=== PATIENT | female | born 1990 | race Caucasian/White ===

== ENCOUNTER 2023-04-22 09:10 | Outpatient (AMB) | payer OTHER, SELFPAY ==
--- NOTE | 2023-04-22 09:55 | MHC.OFFWIV ---
Intake Vital Signs 04/22/23 10:02 BP 106/72 Blood Pressure Location Lt brachial Position Sitting Pulse 82 Pulse Source Pulse Oximeter Temp 97.4 F Temp Source Temporal Artery Scan Pulse Oximetry (%) 99 Oxygen Delivery Method Room Air Intake Visit Reasons: EST/strep throat,fever/[phone] Intake Note: Patient here for sore throat, fever, difficulty swallowing for about a day or so. Patient Tobacco Use Status: Never used Tobacco Allergies codeine Adverse Reaction (Mild, Verified 04/22/23 09:56) Vomiting Do you need a note to return to daycare/school/sports/work: No HPI HPI Comments History of Present Illness Details 1017 33-year-old female presents with sore throat, fatigue, malaise, fevers, chills on going for the past 3 days worsening, patient reports her throat is worse with eating, swallowing and really bothering her. Patient denies any sick contacts. Denies changes in voice, trouble opening mouth, trouble controlling secretions, chest pain, shortness of breath, nausea, vomiting, abdominal pain, headache, vision changes, dizziness, weakness. Physical exam significant for Pharynx w/ b/l tonsils w/ errythema and mild edema no exudate or visible abscess noted. Speaking in full sentences, no trismus, contorlling secretions well..??External ears normal, TMs normal bilaterally and EAC's normal. No pain with manipulation of external ears bilaterally. No mastoid tenderness. high suspicion for strep pharyngitis. Other differentials include viral pharyngitis. No signs of peritonsillar abscess, retropharyngeal abscess, epiglottitis, threatened airway. Plan high suspicion for strep therefore will treat with amoxicillin based antibiotic. Educated patient on diagnosis and treatment plan, answered all question, patient verbalizes understanding. At this time patient will be discharged home, advised to return with new or worsening symptoms. Educated on worrisome signs and symptoms and when to return. At this time I feel comfortable discharge home. [facility] Social History Patient Tobacco Use Status: Never used Tobacco Review of Systems Const Details: Constitutional : No Weight loss, + Fever, + Chills, + Fatigue, + Malaise ENT/Mouth : + sore throat, No Rhinorrhea Eyes: No Eye Pain, No Swelling, No Redness Cardiovascular : No Chest Pain, No SOB, No Dyspnea on Exertion, No Orthopnea, No Edema, No Palpitations Respiratory : No Cough, No Sputum, No Wheezing Gastrointestinal : No Nausea, No Vomiting, No Diarrhea, No Constipation, No abdominal Pain, No Hematochezia, No Melena Genitourinary : No Dysuria, No Urinary Frequency, No Hematuria, Musculoskeletal : No joint pain, No Myalgias, No Joint Swelling Skin : No Skin Lesions, No rash Neuro : No Weakness, No Numbness, No Dizziness, No Headache Psych : No Anxiety/Panic, No Depression All other systems reviewed and are negative All systems reviewed & are unremarkable except as noted in HPI and below Physical Exam Vital Signs: Last Vital Signs Temp 97.4 F 04/22/23 10:02 Pulse 82 04/22/23 10:02 BP 106/72 04/22/23 10:02 Pulse Ox 99 04/22/23 10:02 Oxygen Delivery Method Room Air 04/22/23 10:02 vss Appearance: Alert.? Oriented X3.? No acute distress.? Head: Normocephalic, atraumatic, no step-offs or deformities Eyes: Pupils equal, round and reactive to light.? ENT: Pharynx w/ b/l tonsils w/ errythema and mild edema no exudate or visible abscess noted. Speaking in full sentences, no trismus, contorlling secretions well..??External ears normal, TMs normal bilaterally and EAC's normal. No pain with manipulation of external ears bilaterally. No mastoid tenderness. Neck: Normal inspection.? Neck supple.? CVS: Normal heart rate and rhythm.? Pulses normal.? Respiratory: No respiratory distress.? Breath sounds normal.? Abdomen: Soft and nontender.? Skin: Skin warm and dry.? Normal skin color.? Normal skin turgor.? Extremities: No lower extremity edema.? No calf ttp. 5/5 strength to bilateral upper and lower extremities Back: No midline tenderness, no C-spine tenderness, full range of motion, no CVA tenderness bilaterally Neuro: Oriented X 3.? No motor deficit.? No sensory deficit. CN 2-12 intact Results AMB Rapid Strep AMB Rapid Strep Negative Last Edit by TIANNA Coulter on 04/22/23 10:10 Results Reviewed Results Reviewed: Laboratory Last Values Strep Scn [facility] Negative 04/22/23 10:09 Assessment & Plan Assessment & Plan (1) Pharyngitis: Code(s): J02.9 - Acute pharyngitis, unspecified Plan Take your medications as prescribed. If you were prescribed antibiotics today, it is important that you take your medication to their entirety, do not skip any doses, do not finish them early. Follow-up with your primary care provider this week. Return to the emergency department with new or worsening symptoms. Such as fevers, chills, chest pain, shortness of breath, nausea, vomiting, dizziness, headache, vision changes, lethargy In case of emergency call 911 your strep test came back negative however, high suspicion for strep throat will treat you for strep. Take antibiotics prescribed. Orders: Orders AMB Rapid Strep Screen Today Z13.9 - Encounter for screening, unspecified Coding Level of Care Code Est Pt Level 3 (14102) Diagnoses Pharyngitis J02.9
[2023-04-22 10:02] VITALS: BP 106/72; PULSE 82; TEMP 36.3; O2SAT 99
== END 2023-04-22 10:26 | disposition home or self-care (01) ==
PROVIDERS: Visit Provider Physician Assistant
DX: J02.9 Acute pharyngitis, unspecified (principal)
CPT/HCPCS: 87880; 99213